=== PATIENT | male | born 1995 | race African-American/Black ===

== ENCOUNTER 2022-05-30 07:52 | Outpatient (CLI) | payer OTHER, SELFPAY ==
--- NOTE | ~2022-05-30 | MR_ITS ---
EXAMINATION: MR knee LT wo con DATE: 05/30/2022 12:24 INDICATION: Left knee injury playing basketball 3 weeks ago. Pain, swelling and instability. TECHNIQUE: Magnetic resonance imaging (MRI) of the left knee was performed without intravenous contra st. Sequences included axial PD-weighted FS FSE, coronal PD-weighted FSE and PD-weighted FS FSE, sagi ttal PD-weighted FSE, and sagittal T2-weighted FS FSE. COMPARISON: None. FINDINGS: Medial compartment: Vertically oriented tear of the posterior horn, medial meniscus. Moderate diffuse cartilage thinning. Lateral compartment: Complex tear of the posterior horn, lateral meniscus. Moderate diffuse cartilage thinning. Patellofemoral compartment: Cartilage and retinacula are intact. Ligaments and tendons: Abnormal signal superficial and deep to the MCL fibers. The ACL is discontinuous. Abnormal longitudin al signal within the lateral collateral ligament. PCL is intact. Remaining flexor and extensor tendon s are intact. Fluid: Large volume joint fluid. Osseous/other: Enlarged popliteal lymph nodes. Focal marrow edema in the lateral aspect of the LFC, with accompanyin g deep notch sign. Minimal marrow edema in the posterior aspect of the medial and lateral tibial plat eau and the lateral aspect of the MFC. IMPRESSION: 1. Vertical tear of the posterior horn, medial meniscus. 2. Complex tear of the posterior horn, lateral meniscus. 3. Complete ACL tear. Partial tears of the MCL and LCL. 4. Large joint effusion. 5. Popliteal lymphadenopathy. Reviewed, dictated and finalized at location K. [employer]
== END 2022-05-30 07:53 | disposition home or self-care (01) ==
LOC: ANHIMG 08:00
PROVIDERS: Visit Provider Orthopaedic Surgery
DX: S83.242A Other tear of medial meniscus, current injury, left knee, initial encounter (principal); S83.282A Other tear of lateral meniscus, current injury, left knee, initial encounter; S83.512A Sprain of anterior cruciate ligament of left knee, initial encounter; M25.462 Effusion, left knee; R59.0 Localized enlarged lymph nodes; X58.XXXA Exposure to other specified factors, initial encounter; Y93.67 Activity, basketball
CPT/HCPCS: 73721